=== PATIENT | female | born 1970 | race Caucasian/White ===

== ENCOUNTER 2016-04-28 09:37 | Emergency (ER) | payer OTHER ==
[2016-04-28 09:44] VITALS: BP 101/62; PULSE 75; TEMP 98; BMI 28.7
[2016-04-28] MEDS ORDERED: IBUPROFEN 400 MG TABLET (FP) PO ONE ×2 (10:27→10:31)
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
== END 2016-04-28 10:58 | disposition home or self-care (01) ==
LOC: JERFT 09:37
DX: S86.911A Strain of unspecified muscle(s) and tendon(s) at lower leg level, right leg, initial encounter (principal); V49.69XA Unspecified car occupant injured in collision with other motor vehicles in traffic accident, initial encounter; Y92.488 Other paved roadways as the place of occurrence of the external cause; Y99.8 Other external cause status
CPT/HCPCS: 73562-TC-RT; 99281-25

== ENCOUNTER 2017-02-02 08:10 | Emergency (ER) | payer SELFPAY ==
[2017-02-02 08:44] VITALS: BMI 25.7
[2017-02-02 09:51] LABS: BASOPHIL 0.6 % (0-2.0); EOSINOPHIL 0.5 % (0-4.5); MCH 31.1 pg (25.7-33.7); MCHC 33.3 g/dl (32.0-36.0); MEAN CELL VOLUME 93.3 fl (80-96); MEAN PLT VOLUME 8.4 fl (7.5-11.1); NEUTROPHILS 78.9 % (42.8-82.8); PLATELET COUNT 300 K/MM3 (134-434); RDW 13.2 % (11.6-15.6); WHITE BLOOD COUNT 15.1 K/mm3 (4.0-10.0)
--- NOTE | 2017-02-02 09:54 | PDOC ---
History of Present Illness - General Chief Complaint: Pain Stated Complaint: PELVIC/ABD PAIN Time Seen by Provider: 02/02/17 08:51 History Source: Patient Exam Limitations: No Limitations - History of Present Illness Initial Comments: 02/02/17 09:44 Patient is a 47-year-old female, no significant medical history currently on no medications presents emergency Department with left lower quadrant pain since last evening. Patient states the last few days she felt an urge to have to defecate but was unable to. Patient initially thought she had a viral type illness because 3 weeks ago she was in the [place] and there was a "flu" going around that caused abdominal discomfort. Patient reports tactile fever last night. No diarrhea, no constipation. Denies any urinary symptoms. Past Medical History: Denies. Allergies: No known allergies Medications: None Family History: Non-contributory Social History: Denies smoking, alcohol use, or IVDU Review of Systems GENERAL/CONSTITUTIONAL: No fever or chills. No weakness. No weight change. HEAD, EYES, EARS, NOSE AND THROAT: No change in vision. No ear pain or discharge. No sore throat. CARDIOVASCULAR: No chest pain or shortness of breath. RESPIRATORY: No cough, wheezing, or hemoptysis. GASTROINTESTINAL: Nausea with no vomiting, no diarrhea or constipation, left lower quadrant pain with no rectal bleeding GENITOURINARY: No dysuria, frequency, or change in urination. MUSCULOSKELETAL: No joint or muscle swelling or pain. No neck or back pain. SKIN : No rash or easy bruising. NEUROLOGIC: No headache, vertigo, loss of consciousness, or loss of sensation. PSYCHIATRIC: No depression or anxiety. ENDOCRINE: No increased thirst. No abnormal weight change. HEMATOLOGIC/LYMPHATIC: No anemia, easy bleeding, or history of blood clots. ALLERGIC/IMMUNOLOGIC: No hives or skin allergy. No latex allergy. Physical Exam: GENERAL: The patient is awake, alert, and fully oriented, in no acute distress. EYES: Pupils equal, round and reactive to light, extraocular movements intact, sclera anicteric, conjunctiva clear. ENT: Ears normal, nares patent, oropharynx clear without exudates. Moist mucous membranes. No uvula deviation NECK: Normal range of motion, supple without lymphadenopathy, JVD, or masses. LUNGS: Breath sounds equal, clear to auscultation bilaterally. No wheezes, and no crackles. HEART: Regular rate and rhythm, normal S1 and S2 without murmur, rub or gallop. ABDOMEN: Left lower quadrant tenderness, guarding, no rebound, no masses, no abdominal distention. RECTAL : Guaiac negative, normal rectal tone. MUSCULOSKELETAL: Normal range of motion, no edema. No clubbing or cyanosis. No cords, erythema, or tenderness. No CVA Tenderness with fist. NEUROLOGICAL: Cranial nerves II through XII grossly intact. Normal speech, normal gait. SKIN: Warm, Dry, normal turgor, no rashes or lesions noted. Past History - Past Medical History Allergies/Adverse Reactions: Allergies Allergy/AdvReac Type Severity Reaction Status Date / Time No Known Allergies Allergy Verified 02/02/17 08:41 Home Medications: Ambulatory Orders Ciprofloxacin [Cipro -] 500 mg PO Q12H #20 tablet 02/02/17 Metronidazole [Flagyl -] 500 mg PO TID #30 tablet 02/02/17 NK [No Known Home Medication] 02/02/17 - Surgical History Abdominal Surgery: Yes (tummy tuck) Appendectomy: Yes - Immunization History Immunization Up to Date: Yes - Suicide/Smoking/Psychosocial Hx Smoking Status: No Smoking History: Never smoked Have you smoked in the past 12 months: No Number of Cigarettes Smoked Daily: 0 Hx Alcohol Use: No Drug/Substance Use Hx: No Substance Use Type: None Abd/GI Specific PMHX - Complaint Specific PMHX Gall Bladder Disease: Yes *Physical Exam - Vital Signs Last Vital Signs Temp Pulse Resp BP Pulse Ox 98.0 F 88 18 129/90 98 02/02/17 08:42 02/02/17 08:42 02/02/17 08:42 02/02/17 08:42 02/02/17 08:42 ED Treatment Course - LABORATORY CBC & Chemistry Diagram: 02/02/17 09:30 02/02/17 12:10 Medical Decision Making - Medical Decision Making 02/02/17 09:57 A/P: Patient here for evaluation of left lower quadrant pain, tactile fever, highly suspicious for diverticulitis. Plan: CBC, CMP, lactic acid, blood cultures Analysis, urine culture, urine 02/02/17 10:35 Was made aware by the lab that the lactic acid and CMP were hemolyzed, nursing made aware. Based upon patient's clinical symptoms, left lower quadrant pain, presentation to emergency department patient sent to main emergency room for higher level of care. Report to Devorah charge nurse. *DC/Admit/Observation/Transfer Diagnosis at time of Disposition: Diverticulitis large intestine w/o perforation or abscess w/o bleeding - Prescriptions Prescriptions: Ciprofloxacin [Cipro -] 500 mg PO Q12H #20 tablet Metronidazole [Flagyl -] 500 mg PO TID #30 tablet - Referrals Referrals: Luis A Nathan MD [Staff Physician] - Call tomorrow - Patient Instructions Printed Discharge Instructions: DI for Diverticulitis Additional Instructions: You have diverticulitis. This is an inflammation of the pouch in the colon. Please take the antibiotics as prescribed. Your prescribed ciprofloxacin, and metronidazole. You may take ibuprofen 800 mg as needed for pain. You may take it 3 times a day, not to exceed 3000 mg a day. You should also take the stool softener as prescribed. Eat a clear liquid diet for the next 24-48 hours. Please avoid seeds, and nuts. Drink plenty of fluids. Follow-up with Dr. Nathan, scenic designer. Please call his office tomorrow he is expecting to hear from you. You should schedule an appointment with him for one week from now. If her symptoms get worse before your appointment please call his office and he may want to see you sooner. Return to the emergency department if you develop fevers, chills, worsening pain , nausea, vomiting, weakness, fatigue or any changes in your symptoms. Usted tiene diverticulitis. Esta es josé miguel inflamacin de la bolsa en el colon. Por favor tome los antibiticos segn lo prescrito. Scherer ciprofloxacina recetada y metronidazol. Puede dai ibuprofeno 800 mg segn sea necesario para el dolor. Puede tomarlo 3 veces al da, sin exceder los 3000 mg por da. Tambin debe dai el ablandador de heces segn lo prescrito. Coma josé miguel dieta lquida obed bertha las prximas 24-48 horas. Por favor lien las semillas y las nueces. Beber mucho lquido. Seguimiento con el Dr. Nathan, gastroenterlogo. Por favor llame a scherer oficina ma lyn que espera saber de usted. Debera programar josé miguel radhames con l bertha josé miguel semana a partir de ahora. Si иван sntomas empeoran antes de scherer radhames, llame a scherer oficina y es posible que desee verlo antes. Regrese al departamento de emergencias si tiene fiebre, escalofros, empeoramiento del dolor, nuseas, vmitos, debilidad, fatiga o cualquier cambio en иван sntomas. Print Language: PRYDEINIG - Post Discharge Activity Forms/Work/School Notes: Back to Work
[2017-02-02 10:13] LABS: URINE APPEARANCE CLEAR; URINE BILIRUBIN NEGATIVE (NEGATIVE); URINE BLOOD TRACE-LYSE (NEGATIVE); URINE COLOR DK. ORANGE; URINE GLUCOSE (UA) NEGATIVE (NEGATIVE); URINE KETONE NEGATIVE (NEGATIVE); URINE PROTEIN NEGATIVE (NEGATIVE)
[2017-02-02 10:17] LABS: URINE NITRITE POSITIVE (NEGATIVE)
--- NOTE | 2017-02-02 10:57 | PDOC ---
*Physical Exam - Vital Signs Last Vital Signs Temp Pulse Resp BP Pulse Ox 98.0 F 88 18 129/90 98 02/02/17 08:42 02/02/17 08:42 02/02/17 08:42 02/02/17 08:42 02/02/17 08:42 - Physical Exam Comments: 02/02/17 16:25 GENERAL: Well developed, well nourished. Awake and alert. No acute distress, laying in exam bed. HEENT: Normocephalic, atraumatic. PERRLA, EOMI. No conjunctival pallor. Sclera are non- icteric. Moist mucous membranes. Oropharynx is clear. NECK: Supple. Full ROM. No JVD. Carotid pulses 2+ and symmetric, without bruits. No thyromegaly. No lymphadenopathy. CARDIOVASCULAR: Regular rate and rhythm. No murmurs, rubs, or gallops. Distal pulses are 2+ and symmetric. PULMONARY: No evidence of respiratory distress. Lungs clear to auscultation bilaterally. No wheezing, rales or rhonchi. ABDOMINAL: LLQ pain with light and deep palpation. Rebound tenderness on the left side. Soft. Non-distended. No guarding. No organomegaly. Normoactive bowel sounds. MUSCULOSKELETAL Normal range of motion at all joints. No bony deformities or tenderness. No CVA tenderness. EXTREMITIES: No cyanosis. No clubbing. No edema. No calf tenderness. SKIN: Warm and dry. Normal capillary refill. No rashes. No jaundice. NEUROLOGICAL: Alert, awake, appropriate. Cranial nerves 2-12 intact. No deficits to light touch and temperature in face, upper extremities and lower extremities. No motor deficits in the in face, upper extremities and lower extremities. Normoreflexic in the upper and lower extremities. Normal speech. Toes are down- going bilaterally. Gait is normal without ataxia. PSYCHIATRIC: Cooperative. Good eye contact. Appropriate mood and affect. ED Treatment Course - LABORATORY CBC & Chemistry Diagram: 02/02/17 09:30 02/02/17 12:10 - ADDITIONAL ORDERS Additional order review: Laboratory Results 02/02/17 02/02/17 02/02/17 09:30 09:30 09:16 Sodium Cancelled Potassium Cancelled Chloride Cancelled Carbon Dioxide Cancelled Anion Gap Cancelled BUN Cancelled Creatinine Cancelled Creat Clearance w eGFR Cancelled Random Glucose Cancelled Lactic Acid Cancelled Calcium Cancelled Total Bilirubin Cancelled AST Cancelled ALT Cancelled Alkaline Phosphatase Cancelled Total Protein Cancelled Albumin Cancelled Urine Color Dk. orange Urine Appearance Clear Urine pH 6.0 Urine Protein Negative Urine Glucose (UA) Negative Urine Ketones Negative Urine Blood Trace-lyse Urine Nitrite Positive Urine Bilirubin Negative Urine Urobilinogen 1.0 02/02/17 09:30 RBC 4.58 MCV 93.3 MCHC 33.3 RDW 13.2 MPV 8.4 Neutrophils % 78.9 Lymphocytes % 13.0 Monocytes % 7.0 Eosinophils % 0.5 D Basophils % 0.6 Medical Decision Making - Medical Decision Making 02/02/17 16:13 Sign out received from Olivia Melgoza PERMANENT MOLD SUPERVISOR, from [employer] track Pt. is a 47 y/o female with no PMH who presents to the ED with LLQ pain 24 hours. Pt. states that the pain came on suddenly and this has never happened to her before. VVS stable, afebrile. Concerned for acute diverticulitis at this time. Will obtain CTAP with contrast to r/o diverticulitis at this time. 1. CBC, CMP, PT/INR, Lipase, UA, UC, U 2. CTAP with contrast 3. IV fluids, morphine, zofran 4. Re-evaluate 02/02/17 17:48 Labs show an elevated WBC count of 15. No left shift. All other labs within normal range. CT scan positive for diverticulitis in the LLQ. There is no evidence of abscess formation or perforation at this time. IV antibiotics to be started in the ED. Will page Dr. Nathan for d/c planning. 1. IV Cipro, IV Flagyl 02/02/17 18:[address] Nathan and reviewed the chart. Given CT finidngs, young age and no medical history, can treat this case as an outpatient with oral antibiotics. He will see the patient in one week for follow up. VVS at this time, afebrile. Pt. comfortable with discharge planning and will d/c home at this time. D/C with cipro/flagyl, bowel rest and stool softeners. *DC/Admit/Observation/Transfer Diagnosis at time of Disposition: Diverticulitis large intestine w/o perforation or abscess w/o bleeding - Discharge Dispostion Disposition: HOME Condition at time of disposition: Good Admit: No - Prescriptions Prescriptions: Ciprofloxacin [Cipro -] 500 mg PO Q12H #20 tablet Docusate Sodium [Colace -] 100 mg PO BID #20 capsule Metronidazole [Flagyl -] 500 mg PO TID #30 tablet - Referrals Referrals: Luis A Nathan MD [Staff Physician] - Call tomorrow - Patient Instructions Printed Discharge Instructions: DI for Diverticulitis Additional Instructions: You have diverticulitis. This is an inflammation of the pouch in the colon. Please take the antibiotics as prescribed. Your prescribed ciprofloxacin, and metronidazole. You may take ibuprofen 800 mg as needed for pain. You may take it 3 times a day, not to exceed 3000 mg a day. You should also take the stool softener as prescribed. Eat a clear liquid diet for the next 24-48 hours. Please avoid seeds, and nuts. Drink plenty of fluids. Follow-up with Dr. Nathan, increment manager. Please call his office tomorrow he is expecting to hear from you. You should schedule an appointment with him for one week from now. If her symptoms get worse before your appointment please call his office and he may want to see you sooner. Return to the emergency department if you develop fevers, chills, worsening pain , nausea, vomiting, weakness, fatigue or any changes in your symptoms. Usted tiene diverticulitis. Esta es josé miguel inflamacin de la bolsa en el colon. Por favor tome los antibiticos segn lo prescrito. Scherer ciprofloxacina recetada y metronidazol. Puede dai ibuprofeno 800 mg segn sea necesario para el dolor. Puede tomarlo 3 veces al da, sin exceder los 3000 mg por da. Tambin debe dai el ablandador de heces segn lo prescrito. Coma josé miguel dieta lquida obed bertha las prximas 24-48 horas. Por favor lien las semillas y las nueces. Beber mucho lquido. Seguimiento con el Dr. Nathan, gastroenterlogo. Por favor llame a scherer oficina ma lyn que espera saber de usted. Debera programar josé miguel radhames con l bertha josé miguel semana a partir de ahora. Si иван sntomas empeoran antes de scherer radhames, llame a scherer oficina y es posible que desee verlo antes. Regrese al departamento de emergencias si tiene fiebre, escalofros, empeoramiento del dolor, nuseas, vmitos, debilidad, fatiga o cualquier cambio en иван sntomas. Print Language: ARMENIAN - Post Discharge Activity Forms/Work/School Notes: Back to Work
[2017-02-02] MEDS ORDERED: SODIUM CHLORIDE 1,000 ML IV STA ×2 (11:02→15:08)
[2017-02-02] MEDS ORDERED: morphine CARPU-JECT 4 MG/1 ML DISP.SYRIN IVPUSH ONE (11:03)
[2017-02-02] MEDS ORDERED: morphine CARPU-JECT 10 MG/1 ML DISP.SYRIN ONE (11:27)
[2017-02-02 12:33] LABS: INR 1.04 (0.82-1.09); PROTHROMBIN TIME (PATIENT) 11.7 SEC (9.98-11.88)
[2017-02-02 12:51] LABS: ALBUMIN 3.6 g/dl (3.4-5.0); ANION GAP 10 (8-16); CALCIUM 8.7 mg/dL (8.5-10.1); CO2 27 mmol/L (21-32); GLUCOSE,RANDOM 82 mg/dL (74-106)
[2017-02-02 12:54] LABS: ALK PHOS 70 U/L (45-117); BILIRUBIN,TOTAL 0.8 mg/dL (0.2-1.0); CREATININE 0.5 mg/dL (0.55-1.02); SGOT/AST 17 U/L (15-37); SGPT/ALT 25 U/L (12-78); TOT PROT 7.5 g/dl (6.4-8.2)
[2017-02-02] MEDS ORDERED: CEFTRIAXONE 1 GM in DEXTROSE 5%-WATER - 50 ML IVPB ONE (15:08)
[2017-02-02] MEDS ORDERED: METRONIDAZOLE 500 MG PREMIXED 100 ML IVPB ONE ×2 (15:08→15:32)
[2017-02-02 16:13] LABS: URINE MUCUS RARE; URINE RBC 2 /hpf (0-3); URINE WBC 1 /hpf (3-5)
[2017-02-02 17:23] VITALS: BP 104/56; PULSE 78; TEMP 98.2
[2017-02-02 18:45] LABS: URINE LEUK ESTERASE Negative (NEGATIVE)
== END 2017-02-02 17:26 | disposition home or self-care (01) ==
LOC: JER 08:10 → JERFT 08:10 → JER 17:26
PROC: 3E0337Z Introduction of Electrolytic and Water Balance Substance into Peripheral Vein, Percutaneous Approach (ICD-10-PCS; principal; 2017-02-02)
PROC: 3E03329 Introduction of Other Anti-infective into Peripheral Vein, Percutaneous Approach (ICD-10-PCS; 2017-02-02)
PROC: 3E03329 Introduction of Other Anti-infective into Peripheral Vein, Percutaneous Approach (ICD-10-PCS; 2017-02-02)
PROC: 3E033NZ Introduction of Analgesics, Hypnotics, Sedatives into Peripheral Vein, Percutaneous Approach (ICD-10-PCS; 2017-02-02)
DX: K57.32 Diverticulitis of large intestine without perforation or abscess without bleeding (principal)
CPT/HCPCS: 36415; 74177-TC; 80053; 81003; 81015; 83605; 84703; 85025; 85610; 87040; 87086; 99283-25; Q9967

== ENCOUNTER 2018-12-11 18:59 | Emergency (ER) | payer OTHER ==
[2018-12-11 19:16] VITALS: BP 135/86; PULSE 89; TEMP 98.7; BMI 31.6
--- NOTE | 2018-12-11 19:17 | PDOC ---
Rapid Medical Evaluation Chief Complaint: Cold Symptoms Time Seen by Provider: 12/11/18 19:15 Medical Evaluation: Allergies Allergy/AdvReac Type Severity Reaction Status Date / Time No Known Allergies Allergy Verified 02/02/17 08:41 12/11/18 19:15 I have performed a brief in-person evaluation of this patient. The patient presents with a chief complaint of: cough, chest congestion since yesterday Pertinent physical exam findings: Lungs CTA The patient will proceed to the ED for further evaluation. Discharge Disposition - Diagnosis Cough - Referrals - Patient Instructions - Post Discharge Activity
--- NOTE | 2018-12-11 19:58 | PDOC ---
History of Present Illness - General Chief Complaint: Cold Symptoms Stated Complaint: FLU LIKE SYMPTOMS Time Seen by Provider: 12/11/18 19:15 - History of Present Illness Initial Comments: 12/11/18 19:57 48-year-old female with cough and scratchy throat 2 days without systemic symptoms. Past History - Past Medical History Allergies/Adverse Reactions: Allergies Allergy/AdvReac Type Severity Reaction Status Date / Time No Known Allergies Allergy Verified 12/11/18 19:16 Home Medications: Ambulatory Orders Ciprofloxacin [Cipro -] 500 mg PO Q12H #20 tablet 02/02/17 Docusate Sodium [Colace -] 100 mg PO BID #20 capsule 02/02/17 metroNIDAZOLE [Flagyl -] 500 mg PO TID #30 tablet 02/02/17 Cetirizine HCl [Zyrtec -] 10 mg PO DAILY #30 tablet 12/11/18 COPD: No - Surgical History Abdominal Surgery: Yes (tummy tuck) Appendectomy: Yes - Immunization History Immunization Up to Date: Yes - Suicide/Smoking/Psychosocial Hx Smoking Status: No Smoking History: Never smoked Have you smoked in the past 12 months: No Number of Cigarettes Smoked Daily: 0 Information on smoking cessation initiated: No Hx Alcohol Use: No Drug/Substance Use Hx: No Substance Use Type: None Review of Systems - Review of Systems Constitutional: No: Chills, Diaphoresis, Fever, Malaise, Night Sweats HEENTM: Yes: Throat Pain Respiratory: Yes: Cough *Physical Exam - Vital Signs Last Vital Signs Temp Pulse Resp BP Pulse Ox 98.7 F 89 16 135/86 100 12/11/18 19:14 12/11/18 19:14 12/11/18 19:14 12/11/18 19:14 12/11/18 19:14 - Physical Exam Comments: 12/11/18 19:56 HEAD: NC/AT EYES: Conjuntiva clear Ears: Canals and TM's normal NOSE: No d/c THROAT: Moist mucous membrances, oral pharanx clear, uvula midline NECK: Supple without adenopathy CARDIAC: S1 S2 LUNGS: CTA Full and Equal breath sounds ABDOMEN: Soft NT ND MS: Full ROM in all joints without edema NEUROLOGIC: No gross sensory or motor deficits, NVID SKIN: Normal color and temperature no lesions or rashes Medical Decision Making - Medical Decision Making 12/11/18 19:56 48-year-old female with no comorbidities presents for evaluation of cough and nasal congestion and itchy throat scratchy throat for 2 days without systemic symptoms most likely seasonal ALLERGIES will treat accordingly with antihistamine. *DC/Admit/Observation/Transfer Diagnosis at time of Disposition: Cough, Seasonal allergies - Discharge Dispostion Disposition: HOME Condition at time of disposition: Stable Decision to Admit order: No - Referrals Referrals: Gus Galo MD [Primary Care Provider] - - Patient Instructions Additional Instructions: Please take the Zyrtec as directed. Return to the emergency room for worsening symptoms. Without fail, please follow-up with your primary care physician in 1- 2 days for further evaluation and treatment options. Return to the emergency room should symptoms worsen. - Post Discharge Activity
== END 2018-12-11 20:05 | disposition home or self-care (01) ==
LOC: JERFT 18:59
DX: J30.2 Other seasonal allergic rhinitis (principal); R05 Cough
CPT/HCPCS: 99281-25